=== PATIENT | male | born 1985 | race Caucasian/White ===

== ENCOUNTER → 2019-07-03 08:42 | Outpatient (BNVA) | payer BC, SELFPAY | PROVIDERS: Family Provider Nurse Practitioner; PCP Nurse Practitioner; Visit Provider Nurse Practitioner | DX: I10 Essential (primary) hypertension (principal) | CPT/HCPCS: 80053; 80061; 81000 ==

== ENCOUNTER → 2020-09-09 11:00 | Outpatient (BNVA) | payer BC, SELFPAY | PROVIDERS: Family Provider Nurse Practitioner; PCP Nurse Practitioner; Visit Provider Nurse Practitioner | DX: Z20.822 Contact with and (suspected) exposure to COVID-19 (principal); J98.01 Acute bronchospasm | CPT/HCPCS: 87635 ==

== ENCOUNTER → 2021-04-24 08:20 | Outpatient (BNVA) | payer BC, SELFPAY | PROVIDERS: Family Provider Nurse Practitioner; PCP Nurse Practitioner; Visit Provider Nurse Practitioner | DX: I10 Essential (primary) hypertension (principal); F41.8 Other specified anxiety disorders | CPT/HCPCS: 80053; 80061; 85025 ==

== ENCOUNTER → 2021-10-17 08:36 | Outpatient (BNVA) | payer BC, SELFPAY | PROVIDERS: Family Provider Nurse Practitioner; PCP Nurse Practitioner; Visit Provider Nurse Practitioner | DX: I10 Essential (primary) hypertension (principal); F41.8 Other specified anxiety disorders | CPT/HCPCS: 80053; 80061; 88305 ==

== ENCOUNTER → 2022-04-19 16:42 | Outpatient (BNVA) | payer BC, SELFPAY | PROVIDERS: Family Provider Nurse Practitioner; PCP Nurse Practitioner; Visit Provider Nurse Practitioner | DX: I10 Essential (primary) hypertension (principal); F41.8 Other specified anxiety disorders | CPT/HCPCS: 80053; 80061 ==

== ENCOUNTER → 2022-10-12 08:31 | Outpatient (BNVA) | payer BC, SELFPAY | PROVIDERS: Family Provider Nurse Practitioner; PCP Nurse Practitioner; Visit Provider Nurse Practitioner | DX: I10 Essential (primary) hypertension (principal); F41.8 Other specified anxiety disorders | CPT/HCPCS: 80053 ==

== ENCOUNTER → 2023-03-27 16:18 | Outpatient (BNVA) | payer BC, SELFPAY | PROVIDERS: Family Provider Nurse Practitioner; PCP Nurse Practitioner; Visit Provider Nurse Practitioner | DX: I10 Essential (primary) hypertension (principal); F41.8 Other specified anxiety disorders | CPT/HCPCS: 80053; 80061; 81000; 85025 ==

== ENCOUNTER 2023-05-14 11:16 | Emergency (ER) | payer OTHER, SELFPAY ==
[2023-05-14 11:26] VITALS: BP 168/111; PULSE 82; RESP 16; TEMP 36.6; O2SAT 98; BMI 34.8
--- NOTE | 2023-05-14 11:40 | ED_ITS ---
HPI - Wound/Laceration General: Chief Complaint: Wound/Laceration Stated Complaint: 2 lacs left arm Time Seen by Provider: 05/14/23 11:31 Source: patient Mode of arrival: ambulatory Limitations: no limitations History of Present Illness: Patient is a nice 38-year-old male presents to ED today for evaluation of 2 left forearm lacerations that he sustained after bumping it on a sharp chainsaw blade that was not actively running. Last tetanus was within the last 5 years. He is not on anticoagulation. Denies numbness, tingling, loss of sensation. Bleeding is controlled upon arrival. Onset (ago): hour(s) Extremity Location: Left: forearm Place: home Patient tetanus UTD: Yes Context: accidental Associated symptoms: Reports no associated symptoms Treatments prior to arrival: bandage Review of Systems Musc: Denies: extremity swelling, joint pain or joint swelling Skin/Breast: Reports: other (Lacerations to left forearm) Neuro: Denies: numbness in extremities or sensory changes PFS ED PFSH: Medical History BMI 35.0-35.9,adult Essential hypertension History of kidney stones Fatty liver Environmental and seasonal allergies Surgical History History of colonoscopy 2018 History of hemorrhoidectomy Family History Other Diabetes Heart disease Hypertension Stroke Social History Smoking and tobacco/nicotine status: never used tobacco/nicotine Second hand smoke exposure: No Alcohol intake: never Substance/Drug Use: never Adopted: No Caregiver/support person: No Lives independently: Yes Household members: spouse Housing: House Marital status: service: No Current occupational status: employed Pets and animals: Yes Do you think of yourself as: Straight/Heterosexual Current gender identity: Male Physical Exam Const: COMMON NORMALS: no acute distress and no limitations Extremity: COMMON NORMALS: full ROM and capillary refill normal GENERAL: Yes normal exam except as noted LEFT UPPER EXTREMITY: Yes lower arm Left lower arm: Yes inspection (two lacerations present-3cm and 2cm; bleeding controlled), Yes neurovascular exam (normal) and Yes other (does not involve muscle/tendon) Neuro: COMMON NORMALS: moves all extremities, no focal motor deficits and no sensory deficits noted Procedures Laceration Laceration 1: Site: upper extremity (L forearm) Side (If applicable): left Size (cm): 3.0 Description: linear Depth: simple, single layer Local Anesthetic: lidocaine 1% and with epi Amount of anesthesia used (mL): 3.0 Pre-repair: wound explored and irrigated extensively Skin layer closed with: nylon Size (cm): 4-0 Number of sutures: 5 Technique: simple, interrupted Laceration 2: Site: upper extremity (L forearm) Side (If applicable): left Size (cm): 2.0 Description: linear Depth: simple, single layer Local Anesthetic: lidocaine 1% and with epi Amount of anesthesia used (mL): 2.0 Pre-repair: wound explored and irrigated extensively Skin layer closed with: nylon Size (cm): 4-0 Number of sutures: 4 Technique: simple, interrupted Course Vital Signs: Vital signs: Vital Signs Temperature 97.8 F 05/14/23 11:26 Pulse Rate 77 05/14/23 13:04 Respiratory Rate 18 05/14/23 13:04 Blood Pressure 152/97 05/14/23 13:04 Pulse Oximetry 96 05/14/23 13:04 Oxygen Delivery Me thod Room Air 05/14/23 12:06 MDM - Wound/Laceration Medical Decision Making Lacerations were copiously irrigated and repaired as documented. Tetanus is up-to-date. No imaging necessary. Wound care/infection precautions for home discussed. Differential Diagnosis Likely laceration Medical Records I reviewed the patient's medical records. No radiology studies performed this visit Discharge Plan Discharge Patient Disposition: Home Clinical Impression: Laceration of arm, left, multiple sites Qualifiers: Encounter type: initial encounter Qualified Code(s): S41.112A - Laceration without foreign body of left upper arm, initial encounter Condition: Stable Prescriptions: No Action potassium citrate 15 mEq tablet extended release 15 meq PO BID (DME) Disposable nebulizer circuit See Rx Instructions .ROUTE .MEDSUPPLY Qty: 1 0RF Rx Instructions: As directed amlodipine 5 mg tablet 5 mg PO DAILY Qty: 30 5RF escitalopram oxalate [Lexapro] 10 mg tablet 10 mg PO DAILY Qty: 30 5RF Discharge Orders: Discharge ED (Routine); Ordered 05/14/23 Ordered By: Danelle Santamaria Referrals: Michael Judd, [facility] REPRESENTATIVE-[facility] [Primary Care Provider] - Patient Instructions: Laceration (DC) Activity Restrictions/Additional Instructions: Keep wound/laceration clean with warm soap and water twice daily. Monitor for signs of infection such as redness, swelling, increased pain, or drainage. Please seek medical re-evaluation if these occur. If you received sutures today these will need to be removed (unless you were told by the provider that they are absorbable). The provider should have discussed with you the length of time until removal-7 TO 10 DAYS. Coding Level of Care Code ED Business Proposal Rep for Gabi Lion
[2023-05-14 12:06] VITALS: BP 152/97; PULSE 80; O2SAT 97
[2023-05-14 13:04] VITALS: BP 152/97; PULSE 77; RESP 18; O2SAT 96
== END 2023-05-14 13:05 | disposition home or self-care (01) ==
PROVIDERS: Emergency Provider Physician Assistant; PCP Nurse Practitioner
DX: S51.812A Laceration without foreign body of left forearm, initial encounter (principal); I10 Essential (primary) hypertension; W29.3XXA Contact with powered garden and outdoor hand tools and machinery, initial encounter
CPT/HCPCS: 12002; 99282

== ENCOUNTER → 2023-09-11 16:10 | Outpatient (BNVA) | payer OTHER, SELFPAY | PROVIDERS: PCP Nurse Practitioner; Visit Provider Nurse Practitioner | DX: I10 Essential (primary) hypertension (principal) | CPT/HCPCS: 80053; 80061 ==

== ENCOUNTER → 2024-02-03 17:07 | Outpatient (BNVA) | payer OTHER, SELFPAY | PROVIDERS: PCP Nurse Practitioner; Visit Provider Nurse Practitioner | DX: I10 Essential (primary) hypertension (principal); F41.8 Other specified anxiety disorders | CPT/HCPCS: 80053; 80061 ==

== ENCOUNTER → 2024-07-20 17:13 | Outpatient (BNVA) | payer BC, OTHER, SELFPAY | PROVIDERS: PCP Nurse Practitioner; Visit Provider Nurse Practitioner | DX: I10 Essential (primary) hypertension (principal) | CPT/HCPCS: 80053; 80061 ==

== ENCOUNTER 2024-07-29 08:31 | Outpatient (CLI) | payer BC, SELFPAY ==
--- NOTE | 2024-07-29 08:30 | US_ITS ---
WS: [id number] RIGHT UPPER QUADRANT ULTRASOUND HISTORY: K76.0 - Fatty (change of) liver, not elsewhere classified COMPARISON: 09/05/2018 Liver: 19.6 cm in length. Moderately enlarged liver. Attenuation with poor visualization of the deep liver. Portal triads are not visualized. Portal Vein: Normal hepatopetal flow with monophasic waveform. Gallbladder: Gallbladder is nondistended. Sludge or artifact in the gallbladder lumen. No stones or shadowing. CBD: 0.3 cm Pancreas: Poorly visualized. Right kidney: 9.4 cm in length. Limited. No hydronephrosis. Aorta and IVC: Limited. No ascites. US/US liver [id number] IMPRESSION: 1. Technically difficult and limited RIGHT upper quadrant ultrasound due to fozia dy habitus. 2. Moderate hepatomegaly and hepatic steatosis. Entire liver is not visualized . 3. No cholelithiasis. There is a small amount of sludge or artifact within the gallbladder.
== END 2024-07-29 08:32 | disposition home or self-care (01) ==
LOC: RAD 08:32
PROVIDERS: PCP Nurse Practitioner; Visit Provider Nurse Practitioner
DX: K76.0 Fatty (change of) liver, not elsewhere classified (principal); R16.0 Hepatomegaly, not elsewhere classified; R16.1 Splenomegaly, not elsewhere classified; R93.3 Abnormal findings on diagnostic imaging of other parts of digestive tract
CPT/HCPCS: 76705

== ENCOUNTER 2025-01-20 12:07 | Outpatient (CLI) | payer BC, SELFPAY ==
--- NOTE | 2025-01-20 12:15 | US_ITS ---
WS: [id number] ULTRASOUND SOFT TISSUES LEFT antecubital fossa. HISTORY: Soft tissue mass. COMPARISON: None available. TECHNIQUE: 2-D and color Doppler imaging is submitted. There is a soft tissue mass centered along the medial LEFT elbow joint. This is a well-circumscribed but hypoechoic mass with no increased vascularity. This is a firm mass with low-level echoes measuring 2.3 x 1.6 x 1.6 cm. There is adjacent edema in the soft tissues. This mass is displacing the cephalic vein and there is a small amount of wall thickening and superficial thrombophlebitis associated with the cephalic vein. US/US soft tissue/extremity [id number] IMPRESSION: 1. Hypoechoic mass without increased vascularity along the medial LEFT elbow j oint. Favor this is probably a ganglion. Other etiologies such as gout/bursitis or synovial tumor should be excluded. Recommend MRI LEFT elbow with and withou t contrast. 2. Notified MISTY Lira at 01/20/2025 1:37 PM.
== END 2025-01-20 12:08 | disposition home or self-care (01) ==
PROVIDERS: PCP Nurse Practitioner; Visit Provider Nurse Practitioner
DX: M79.89 Other specified soft tissue disorders (principal); R22.32 Localized swelling, mass and lump, left upper limb; M25.822 Other specified joint disorders, left elbow
CPT/HCPCS: 76882